=== PATIENT | female | born 1990 | race Caucasian/White ===

== ENCOUNTER 2017-09-17 05:08 | Emergency (ER) | payer OTHER ==
[2017-09-17] MEDS ORDERED: NA CHLORIDE 0.9% 1,000 ML ONE ×2 (05:33→07:18)
[2017-09-17] MEDS ORDERED: PANTOPRAZOLE 40 MG INJ ONE (05:40)
[2017-09-17] MEDS ORDERED: PROMETHAZINE 25 MG/ML VIAL ONE (05:40)
[2017-09-17] MEDS ORDERED: Morphine 2 MG/2 ML SYR ONE (05:41)
[2017-09-17 05:50] LABS: Absolute Lymphocytes (CBC) 1.8 K/uL (0.7-4.9); Absolute Monocytes 0.5 K/uL (0.1-1.3); Absolute Neutrophil 4.3 K/uL (1.8-8.0); Basophils % 0.4 % (0-1.3); Eosinophils % 1.8 % (0-4.4); Hematocrit 42.7 % (36.0-45.0); Lymphocytes % 26.5 % (15.3-44.8); MCH 27.7 pg (27.0-35.0); MPV 9.8 fL (7.6-11.3); RBC Red Blood Cell Count 5.15 M/uL (3.86-4.86)
[2017-09-17 05:51] LABS: Protime INR 1.13
[2017-09-17 06:02] LABS: Urine Blood NEGATIVE (NEG); Urine Glucose NEGATIVE (NEG); Urine Protein NEGATIVE (NEG); Urine Specific Gravity 1.015 (1.005-1.030); Urine pH 7.5 (5.0-7.0)
[2017-09-17 06:04] LABS: Potassium 3.3 mEq/L (3.6-5.0)
[2017-09-17 06:10] LABS: Albumin 4.6 g/dL (3.2-5.5); Bilirubin Direct 0.1 mg/dL (0-0.2); Bilirubin Total 0.5 mg/dL (0.3-1.2); Magnesium 1.7 mg/dL (1.8-2.5)
[2017-09-17 06:12] LABS: CKMB Creatine Kinase MB 0.7 ng/ml (0.3-4.0)
[2017-09-17] MEDS ORDERED: MAGNESIUM SULFATE 1 gm IVPB 1 GM/100 ML BAG IV ONE (07:01)
[2017-09-17] MEDS ORDERED: KCL 20 MEQ/100 mL IVPB 20 MEQ/100 ML BAG IV ONE (07:03)
--- NOTE | 2017-09-17 08:11 | RAD REPORT ---
EXAM DESCRIPTION: CT - Stone Protocol - 09/17/2017 7:14 am CLINICAL HISTORY: Flank pain. Nausea. COMPARISON: None. TECHNIQUE: Axial images were obtained without oral or IV contrast. Lack of contrast limits solid org an and vascular assessment. The [id number] spans the entirety of the system partially obscuring uppermost abdomen and lung bases. Coronal reformatted images were obtained and reviewed. All CT scans are performed using dose optimization technique as appropriate and may include automated exposure control or mA/KV adjustment according to patient size. FINDINGS: The lower lung collazo are clear. Imaged portions of the liver and spleen show no suspicious findings on non-contrast imaging. The panc reas and adrenal glands are normal. No pathologic lymphadenopathy in the abdomen or pelvis. No urinary tract stones or obstructive uropathy. No bowel obstruction, free air, free fluid or abscess. Appendectomy clips noted. No significant bony abnormality. IMPRESSION: No urinary tract stones or obstructive uropathy. Appendectomy. No acute findings seen.
--- NOTE | 2017-09-17 08:12 | RAD REPORT ---
EXAM DESCRIPTION: US - Abdomen Exam Limited - 09/17/2017 7:09 am CLINICAL HISTORY: Abdominal pain. COMPARISON: None. FINDINGS: The gallbladder demonstrates no gallstones. No pericholecystic fluid or gallbladder wall t hickening. The common bile duct is normal measuring 4 mm. The liver demonstrates no findings of intrahepatic biliary dilatation. IMPRESSION: Unremarkable examination.
--- NOTE | 2017-09-17 08:50 | RAD REPORT ---
EXAM DESCRIPTION: RAD - Chest Single View - 09/17/2017 5:41 am CLINICAL HISTORY: Chest pain. COMPARISON: None. FINDINGS: Portable technique limits examination quality. The lungs are grossly clear. The heart is normal in size. No displaced fractures. IMPRESSION: No acute intrathoracic process suspected.
--- NOTE | 2017-09-17 10:03 | EKG ---
Test Date: 2017-09-17 Test Time: 05:37:35 Media Marketing Specialist: SCOOTER MEASUREMENT RESULTS: Intervals: Rate: 82 DC: 136 QRSD: 90 QT: 362 QTc: 422 [place]: P: 71 DC: 136 QRS: 84 T: 69 INTERPRETIVE STATEMENTS: Normal sinus rhythm Normal ECG No previous ECG available for comparison Electronically Signed On 09-17-17 10:02:53 CDT by Marty Ch
--- NOTE | 2017-09-17 10:32 | EDPHYS ---
Physician Documentation [facility] Name: Brianna Domingo Age: 26 yrs Sex: Female : 1990 Arrival Date: 09/17/2017 Time: 05:09 Bed 17 Private MD: ED Physician Db Norman HPI: 09/17 05:23 This 26 yrs old Female presents to ER via Ambulatory with complaints of Flank martha Pain, Abdominal Pain, Low Back Pain. 05:23 This 26 yrs old Female presents to ER via Ambulatory with complaints of Flank martha Pain, Abdominal Pain, Low Back Pain. 05:23 The patient complains of pain in the right low back. The pain radiates to the right low martha back. 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 - Social history:: Smoking status: Patient/guardian denies using tobacco. - Family history:: not pertinent. ROS: 05:23 Constitutional: Negative for fever, chills, and weight loss, Eyes: Negative for injury, martha pain, redness, and discharge, ENT: Negative for injury, pain, and discharge, Neck: Negative for injury, pain, and swelling, Cardiovascular: Negative for chest pain, palpitations, and edema, Respiratory: Negative for shortness of breath, cough, wheezing, and pleuritic chest pain, Back: Negative for injury and pain, : Negative for injury, bleeding, discharge, and swelling, MS/Extremity: Negative for injury and deformity, Skin: Negative for injury, rash, and discoloration, Neuro: Negative for headache, weakness, numbness, tingling, and seizure, Psych: Negative for depression, anxiety, suicide ideation, homicidal ideation, and hallucinations, Allergy/Immunology: Negative for hives, rash, and allergies, Endocrine: Negative for neck swelling, polydipsia, polyuria, polyphagia, and marked weight changes. 05:23 Abdomen/GI: Positive for abdominal pain, of the epigastric area and right upper quadrant. Exam: 05:23 Constitutional: This is a well developed, well nourished patient who is awake, alert, martha and in no acute distress. Head/Face: Normocephalic, atraumatic. Eyes: Pupils equal round and reactive to light, extra-ocular motions intact. Lids and lashes normal. Conjunctiva and sclera are non-icteric and not injected. Cornea within normal limits. Periorbital areas with no swelling, redness, or edema. ENT: Nares patent. No nasal discharge, no septal abnormalities noted. Tympanic membranes are normal and external auditory canals are clear. Oropharynx with no redness, swelling, or masses, exudates, or evidence of obstruction, uvula midline. Mucous membranes moist. Neck: Trachea midline, no thyromegaly or masses palpated, and no cervical lymphadenopathy. Supple, full range of motion without nuchal rigidity, or vertebral point tenderness. No Meningismus. Chest/axilla: Normal chest wall appearance and motion. Nontender with no deformity. No lesions are appreciated. Cardiovascular: Regular rate and rhythm with a normal S1 and S2. No gallops, murmurs, or rubs. Normal PMI, no JVD. No pulse deficits. Respiratory: Lungs have equal breath sounds bilaterally, clear to auscultation and percussion. No rales, rhonchi or wheezes noted. No increased work of breathing, no retractions or nasal flaring. Back: No spinal tenderness. No costovertebral tenderness. Full range of motion. Female : Normal external genitalia. Skin: Warm, dry with normal turgor. Normal color with no rashes, no lesions, and no evidence of cellulitis. MS/ Extremity: Pulses equal, no cyanosis. Neurovascular intact. Full, normal range of motion. Neuro: Awake and alert, GCS 15, oriented to person, place, time, and situation. Cranial nerves II-XII grossly intact. Motor strength 5/5 in all extremities. Sensory grossly intact. Cerebellar exam normal. Normal gait. Psych: Awake, alert, with orientation to person, place and time. Behavior, mood, and affect are within normal limits. 05:23 Abdomen/GI: Inspection: abdomen appears normal, Bowel sounds: normal, Palpation: mild abdominal tenderness, moderate abdominal tenderness, in the epigastric area and right upper quadrant. Vital Signs: 05:18 BP 124 / 92; Pulse 78; Resp 18; Temp 97.8; Pulse Ox 99% ; Weight 64.86 kg; Height 5 ft. aa1 5 in. (165.10 cm); Pain 5/10; 06:23 BP 113 / 76; Pulse 64; Resp 18; Pulse Ox 98% ; Pain 0/10; mg2 07:35 BP 111 / 78; Pulse 65; Resp 17; Pulse Ox 100% on R/A; ae1 09:01 BP 116 / 76; Pulse 74; Resp 19; Pulse Ox 100% on R/A; ae1 10:02 BP 113 / 79; Pulse 81; Resp 18; Pulse Ox 100% on R/A; ae1 05:18 Body Mass Index 23.80 (64.86 kg, 165.10 cm) aa1 MDM: 05:16 Patient medically screened. [facility] 05:25 Data reviewed: vital signs, nurses notes, lab test result(s), EKG, radiologic studies, [facility] CT scan, plain films. 10:30 Data interpreted: Pulse oximetry: on room air is 100 %. Interpretation: normal. 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 09/17 05:23 Order name: Basic Metabolic Panel; Complete Time: 06:51 [facility] 09/17 05:23 Order name: BNP; Complete Time: 06:51 [facility] 09/17 05:23 Order name: CBC with Diff; Complete Time: 06:51 [facility] 09/17 05:23 Order name: Ckmb; Complete Time: 06:51 [facility] 09/17 05:23 Order name: CPK; Complete Time: 06:51 [facility] 09/17 05:23 Order name: LFT's; Complete Time: 06:51 [facility] 09/17 05:23 Order name: Magnesium; Complete Time: 06:51 [facility] 09/17 05:23 Order name: PT-INR; Complete Time: 06:51 [facility] 09/17 05:23 Order name: Ptt, Activated; Complete Time: 06:51 [facility] 09/17 05:23 Order name: Troponin (emerg Dept Use Only); Complete Time: 06:51 [facility] 09/17 05:23 Order name: Lipase; Complete Time: 06:51 [facility] 09/17 05:23 Order name: Urine Culture [facility] 09/17 05:31 Order name: Urine Dipstick--Ancillary (enter results); Complete Time: 06:51 cb2 09/17 05:31 Order name: Urine --Ancillary (enter results); Complete Time: 06:51 cb2 09/17 05:23 Order name: Urine Test (obtain specimen); Complete Time: 05:31 martha 09/17 05:23 Order name: XRAY Chest (1 view); Complete Time: 10: martha 09/17 05:23 Order name: EKG; Complete Time: 05:24 martha 09/17 05:23 Order name: Cardiac monitoring; Complete Time: 05:44 martha 09/17 05:23 Order name: EKG - Nurse/Tech; Complete Time: 05:44 martha 09/17 05:23 Order name: US Abdomen Limited; Complete Time: 10:31 martha 09/17 06:54 Order name: CT Stone Protocol; Complete Time: 10:31 martha 09/17 05:23 Order name: IV Saline Lock; Complete Time: 05: martha 09/17 05:23 Order name: Labs collected and sent; Complete Time: 05:31 martha 09/17 05:23 Order name: O2 Per Protocol; Complete Time: 05:31 martha 09/17 05:23 Order name: O2 Sat Monitoring; Complete Time: 05: martha 09/17 05:23 Order name: Urine Dipstick-Ancillary (obtain specimen); Complete Time: 05:31 martha Administered Medications: 05:37 Not Given (Duplicate Order): Pepcid 20 mg IVP once martha 05:37 Not Given (Duplicate Order): fentaNYL (PF) 25 mcg IVP once martha 05:38 Not Given (Duplicate Order): Zofran 4 mg IVP once; over 2 minutes martha 05:53 Drug: ProTONIX 40 mg Route: IVP; Site: left antecubital; mg2 06:27 Follow up: Response: No adverse reaction; Pain is decreased mg2 05:54 Drug: NS 0.9% 1000 ml Route: IV; Rate: 1 bolus; Site: left antecubital; mg2 06:28 Follow up: Response: No adverse reaction; IV Status: Completed infusion mg2 05:54 Drug: morphine 2 mg Route: IVP; Site: left antecubital; mg2 06:28 Follow up: Response: No adverse reaction; Pain is decreased mg2 05:54 Drug: Phenergan 12.5 mg Route: IVP; Site: left antecubital; mg2 06:27 Follow up: Response: No adverse reaction; Nausea is decreased mg2 07:34 Drug: Magnesium Sulfate 1 grams Route: IVPB; Infused Over: 1 hrs; Site: left ae1 antecubital; 07:34 Drug: Potassium Chloride 20 mEq Route: IV; Rate: per protocol; Site: left antecubital; ae1 Disposition: 14:09 Co-signature as Attending Physician, Db Norman MD I agree with the assessment and martha plan of care. Disposition: 09/17/17 10:31 Discharged to Home. Impression: Abdominal tenderness, Nausea, Hypokalemia, Hypomagnesemia, Functional dyspepsia, Cholelithiasis. - Condition is Stable. - Discharge Instructions: Abdominal Pain, Adult, Potassium Content of Foods, Hypomagnesemia, Nausea and Vomiting, Nausea, Adult, Cholelithiasis, Cholelithiasis, [id number]-ju-[id number], Nausea and Vomiting, Zcpk-op-Fqfg, Abdominal Pain, Adult, Uxta-fs-Yhvw. - Prescriptions for Bentyl 20 mg Oral Tablet - take 1 tablet by ORAL route every 6 hours As needed; 20 tablet. Pepcid 20 mg Oral Tablet - take 1 tablet by ORAL route every 12 hours for 10 days; 20 tablet. Zofran 4 mg Oral Tablet - take 1 tablet by ORAL route every 12 hours As needed; 20 tablet. - Medication Reconciliation Form, Thank You Letter, Antibiotic Education, Prescription Opioid Use form. - Follow up: Private Physician; When: 2 - 3 days; Reason: Recheck today's complaints, Continuance of care, Re-evaluation by your physician. Follow up: Royce Craig; When: 2 - 3 days; Reason: Recheck today's complaints, Re-evaluation by your physician. Follow up: Charlie Cunha; When: 2 - 3 days; Reason: Recheck today's complaints, Re-evaluation by your physician. - Problem is new. - Symptoms have improved. Signatures: Dispatcher [employer] EDMS Angela Chaparro RN RN aa1 Db Norman MD MD cha Roszak, Josh, PA PA jr8 Anton Valdivia RN RN ae1 Javon Nelson RN RN jd3 Marck Singh, RN RN mg2 Corrections: (The following items were deleted from the chart) 10:47 10:31 09/17/2017 10:31 Discharged to Home. Impression: Abdominal tenderness; Nausea; ae1 Hypokalemia; Hypomagnesemia; Functional dyspepsia; Cholelithiasis. Condition is Stable. Discharge Instructions: Abdominal Pain, Adult, Potassium Content of Foods, Hypomagnesemia, Nausea and Vomiting, Nausea, Adult, Nausea and Vomiting, Tirx-mj-Ziat, Abdominal Pain, Adult, Fudu-qd-Bspo, Cholelithiasis, Cholelithiasis, Voma-mm-Jbxm. Prescriptions for Bentyl 20 mg Oral Tablet - take 1 tablet by ORAL route every 6 hours As needed; 20 tablet, Pepcid 20 mg Oral Tablet - take 1 tablet by ORAL route every 12 hours for 10 days; 20 tablet, Zofran 4 mg Oral Tablet - take 1 tablet by ORAL route every 12 hours As needed; 20 tablet. and Forms are Medication Reconciliation Form, Thank You Letter, Antibiotic Education, Prescription Opioid Use. Follow up: Private Physician; When: 2 - 3 days; Reason: Recheck today's complaints, Continuance of care, Re-evaluation by your physician. Follow up: Royce Craig; When: 2 - 3 days; Reason: Recheck today's complaints, Re-evaluation by your physician. Follow up: Charlie Cunha; When: 2 - 3 days; Reason: Recheck today's complaints, Re-evaluation by your physician. Problem is new. Symptoms have improved. jr8
--- NOTE | 2017-09-17 10:32 | ER ---
Nurse's Notes [facility] Name: Brianna Domingo Age: 26 yrs Sex: Female : 1990 Arrival Date: 09/17/2017 Time: 05:09 Bed 17 Private MD: Diagnosis: Abdominal tenderness;Nausea;Hypokalemia;Hypomagnesemia;Functional dyspepsia;Cholelithiasis Presentation: 09/17 05:16 Presenting complaint: Patient states: nausea, upper abd pain and R flank pain x 1 week. aa1 Transition of care: patient was not received from another setting of care. Onset of symptoms was September 08, 2017. Initial Sepsis Screen: Does the patient meet any 2 criteria? No. Patient's initial sepsis screen is negative. Does the patient have a suspected source of infection? Yes: Acute abdominal pain. Care prior to arrival: None. 05:16 Method Of Arrival: Ambulatory aa1 05:16 Acuity: JAVI 3 aa1 Triage Assessment: 05:18 General: Appears in no apparent distress. 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 - Social history:: Smoking status: Patient/guardian denies using tobacco. - Family history:: not pertinent. Screenin:18 Abuse screen: Denies threats or abuse. Nutritional screening: No deficits noted. mg2 Tuberculosis screening: No symptoms or risk factors identified. Fall Risk None identified. Assessment: 05:15 General: Appears in no apparent distress. comfortable, Behavior is calm, cooperative. mg2 Pain: Complains of pain in abdomen Pain radiates to right flank Pain level that patient reports is acceptable is 5 out of 10 on a pain scale. Quality of pain is described as aching, Pain began gradually, Is intermittent. Neuro: Level of Consciousness is awake, alert, obeys commands, Oriented to person, place, time, situation. Cardiovascular: Capillary refill < 3 seconds Patient's skin is warm and dry. Respiratory: Airway is patent Respiratory effort is even, unlabored, Respiratory pattern is regular, symmetrical. GI: Abdomen is flat, Reports upper abdominal pain, nausea. EENT: No signs and/or symptoms were reported regarding the EENT system. Derm: Skin is intact, Skin is pink, warm \T\ dry. normal. Musculoskeletal: No signs and/or symptoms reported regarding the musculoskeletal system. 06:15 Reassessment: Patient appears in no apparent distress at this time. Patient and/or mg2 family updated on plan of care and expected duration. Pain level reassessed. Patient is alert, oriented x 3, equal unlabored respirations, skin warm/dry/pink. 07:34 Reassessment: Patient appears in no apparent distress at this time. Patient and/or ae1 family updated on plan of care and expected duration. Pain level reassessed. Patient requests PO fluids, provided patient teaching on remaining NPO until results completed. Patient verbalized understanding. Patient denies pain at this time. Patient states feeling better. 09:00 Reassessment: Patient appears in no apparent distress at this time. Patient and/or ae1 family updated on plan of care and expected duration. Pain level reassessed. Patient states feeling better. Patient states symptoms have improved. 10:02 Reassessment: Patient appears in no apparent distress at this time. Patient and/or ae1 family updated on plan of care and expected duration. Pain level reassessed. Patient is alert, oriented x 3, equal unlabored respirations, skin warm/dry/pink. Patient states feeling better. Patient states symptoms have improved. Vital Signs: 05:18 BP 124 / 92; Pulse 78; Resp 18; Temp 97.8; Pulse Ox 99% ; Weight 64.86 kg; Height 5 ft. aa1 5 in. (165.10 cm); Pain 5/10; 06:23 BP 113 / 76; Pulse 64; Resp 18; Pulse Ox 98% ; Pain 0/10; mg2 07:35 BP 111 / 78; Pulse 65; Resp 17; Pulse Ox 100% on R/A; ae1 09:01 BP 116 / 76; Pulse 74; Resp 19; Pulse Ox 100% on R/A; ae1 10:02 BP 113 / 79; Pulse 81; Resp 18; Pulse Ox 100% on R/A; ae1 05:18 Body Mass Index 23.80 (64.86 kg, 165.10 cm) aa1 ED Course: 05:09 Patient arrived in ED. am2 05:11 Marck Singh, RN is Primary Nurse. mg2 05:15 Db Norman MD is Attending Physician. martha 05:17 Triage completed. aa1 05:18 Arm band placed on right wrist. Patient placed in an exam room, on a stretcher. aa1 05:19 Patient has correct armband on for positive identification. Warm blanket given. mg2 05:37 Urine collected: clean catch specimen, clear, EKG done, by ED staff, reviewed by Db Norman MD. 05:38 X-ray completed. Portable x-ray completed in exam room. Patient tolerated procedure kw well. 05:41 XRAY Chest (1 view) In Process Unspecified. EDMS 05:55 Inserted saline lock: 20 gauge in left antecubital area, using aseptic technique. mg2 05:55 Initial lab(s) drawn, by me, sent to lab. mg2 06:55 Ultrasound completed. Patient tolerated well. aa4 06:57 US Abdomen Limited In Process Unspecified. EDMS 07:15 CT Stone Protocol In Process Unspecified. EDMS 10:31 Royce Craig MD is Referral Physician. jr8 10:31 Charlie Cunha MD is Referral Physician. jr8 10:46 No provider procedures requiring assistance completed. IV discontinued, intact, ae1 bleeding controlled, No redness/swelling at site. Pressure dressing applied. Administered Medications: 05:37 Not Given (Duplicate Order): Pepcid 20 mg IVP once martha 05:37 Not Given (Duplicate Order): fentaNYL (PF) 25 mcg IVP once martha 05:38 Not Given (Duplicate Order): Zofran 4 mg IVP once; over 2 minutes martha 05:53 Drug: ProTONIX 40 mg Route: IVP; Site: left antecubital; mg2 06:27 Follow up: Response: No adverse reaction; Pain is decreased mg2 05:54 Drug: NS 0.9% 1000 ml Route: IV; Rate: 1 bolus; Site: left antecubital; mg2 06:28 Follow up: Response: No adverse reaction; IV Status: Completed infusion mg2 05:54 Drug: morphine 2 mg Route: IVP; Site: left antecubital; mg2 06:28 Follow up: Response: No adverse reaction; Pain is decreased mg2 05:54 Drug: Phenergan 12.5 mg Route: IVP; Site: left antecubital; mg2 06:27 Follow up: Response: No adverse reaction; Nausea is decreased mg2 07:34 Drug: Magnesium Sulfate 1 grams Route: IVPB; Infused Over: 1 hrs; Site: left ae1 antecubital; 07:34 Drug: Potassium Chloride 20 mEq Route: IV; Rate: per protocol; Site: left antecubital; ae1 Outcome: 10:31 Discharge ordered by . javier 10:47 Discharged to home ambulatory, with significant other. ae1 10:47 Condition: stable 10:47 Discharge instructions given to patient, Instructed on discharge instructions, follow up and referral plans. medication usage, Demonstrated understanding of instructions, Prescriptions given X 3. 10:47 Patient left the ED. ae1 Addendum: 09/20/2017 09:30 Addendum: Culture Results: Positive urine culture. Phone call Attempt #1 spoke with s s patient who reports that she has an appointment tomorrow with [facility]. Patient verbalizes understanding to call back if culture report is needed. Signatures: Dispatcher [employer] EDMS Angela Chaparro RN RN aa1 Db Norman MD MD cha Frazier, Amanda aa4 Megan Rosales RN RN ss Whitley, Kimberlee kw Roszak, Josh, PA PA jr8 Anton Valdivia RN RN ae1 Arely Lopez am2 Vic Singh cb2 Marck Singh RN RN mg2 Corrections: (The following items were deleted from the chart) 09/17 05:55 05:54 Urine collected: clean catch specimen, clear, EKG done, by ED staff, reviewed by apoorva Norman MD cb2 05:56 05:15 GI: Abdomen is flat, Reports upper abdominal pain, mg2 mg2 05:57 05:55 GI: Reports nausea, mg2 mg2
== END 2017-09-17 10:47 | disposition home or self-care (01) ==
LOC: ER 05:08
DX: K80.20 Calculus of gallbladder without cholecystitis without obstruction (principal); K30 Functional dyspepsia; E87.6 Hypokalemia; E83.42 Hypomagnesemia; R11.0 Nausea; F41.9 Anxiety disorder, unspecified
CPT/HCPCS: 36415; 71045; 74176; 76377; 76705; 80048; 80076; 81003; 81025; 82550; 82553; 83690; 83735; 83880; 84484; 85025; 85610; 85730; 87077; 87086; 87088; 87186; 93005; 96361; 96374; 96375; 99284; C9113; J2270; J2550; J3475; J7030